=== PATIENT | female | born 1930 | race Caucasian/White ===

== ENCOUNTER → 2016-05-08 | Outpatient (CLI) | payer MEDICARE, OTHER ==
[~2016-05-08] MED LIST: ACID REDUCER200 MG; ADVIL200 MG PO; ALTACE10 MG; ASPIRIN (CHILDR81 MG PO; CRESTOR20 MG PO; GLYCOTROL CAPS1 EACH; NEURONTIN300 MG PO; OXAZEPAM; POTASSIUM600 MG; PRILOSEC20 MG PO; VITAMIN D-40400 UNIT PO
== END | disposition disaster alternative care site (69) ==
LOC: GRAD 09:42
DX: N17.9 Acute kidney failure, unspecified (principal); R94.5 Abnormal results of liver function studies; R73.9 Hyperglycemia, unspecified; E83.52 Hypercalcemia; J90 Pleural effusion, not elsewhere classified; Q61.02 Congenital multiple renal cysts; Z92.29 Personal history of other drug therapy

== ENCOUNTER → 2016-05-15 | Outpatient (CLI) | payer MEDICARE, OTHER | END | disposition disaster alternative care site (69) | LOC: LGSMG 12:15 | DX: R19.7 Diarrhea, unspecified (principal) ==